=== PATIENT | female | born 1935 | race Caucasian/White ===

== ENCOUNTER 2021-10-27 21:54 | Observation (INO) | payer MEDICARE, MEDICAID ==
[2021-10-27 22:31] LABS: #Basophils 0.1 10x3/uL (0.0-0.2); #Eosinphils 0.3 10x3/uL (0.0-0.5); #Monocytes 0.9 10x3/uL (0.0-1.1); #Neutrophils 10.9 10x3/uL (1.5-8.4); %Basophils 0.6 % (0.0-2.0); %Eosinophils 2.4 % (0.0-6.0); %Lymphocytes 3.9 % (18.0-47.0); %Monocytes 6.8 % (0.0-10.0); %Neutrophils 85.8 % (40.0-75.0); Hemoglobin 11.1 g/dL (12.0-15.5); Mean Corpuscular HGB CONC 31.4 g/dL (32.0-36.0); Mean Corpuscular Hemoglobin 29.5 pg (27.0-33.0); Mean Corpuscular Volume 93.9 fl (81.6-98.3); Mean Platelet Volume 9.4 fl (7.4-10.4); Platelet Count 197 10x3/uL (150-450); Red Blood Cell (RBC) Count 3.76 10x6/uL (3.90-5.03); White Blood Cell (WBC) Count 12.7 10x3/uL (3.5-10.5)
[2021-10-27 22:45] LABS: ALT (SGPT) 25 U/L (8-55); AST (SGOT) 23 U/L (5-34); Albumin 3.7 g/dL (3.4-4.8); Alkaline Phosphatase 60 U/L (40-110); Anion Gap 12 mmol/L (10-20); BUN (Urea Nitrogen) 13 mg/dL (9.8-20.1); Bilirubin, Total 0.3 mg/dL (0.2-1.2); Calc. Creatinine Clearance 0 mL/min (70-130); Calcium 8.7 mg/dL (7.8-10.44); Carbon Dioxide 26 mmol/L (23-31); Chloride 103 mmol/L (98-107); Globulin 2.4 g/dL (2.4-3.5); Glucose 110 mg/dL (83-110); Potassium 4.2 mmol/L (3.5-5.1); Protein, Total 6.1 g/dL (5.8-8.1); Sodium 137 mmol/L (136-145)
[2021-10-27] MEDS ORDERED: methylPREDNISolone Sod Succ/PF 125 MG/2 ML VIAL ONE (22:46)
[2021-10-28 01:20] LABS: SARS-CoV-2 NAA Rapid Test Not Detected (NotDetected)
[2021-10-28] MEDS ORDERED: Ondansetron PF 4 MG/2 ML Vial IVP PRN (02:48)
[2021-10-28] MEDS ORDERED: HYDROcodone/Acetaminophen 5/325 mg Tablet PO PRN (02:48)
[2021-10-28] MEDS ORDERED: Calcium Carbonate 500 MG ChewTAB PO PRN (02:48)
[2021-10-28] MEDS ORDERED: Senokot S 8.6-50 MG TAB PO PRN (02:48)
[2021-10-28] MEDS ORDERED: Acetaminophen 325 MG TAB PO PRN (02:48)
[2021-10-28] MEDS ORDERED: Guaifenesin DM 100-10/5 ML UDCUP PO PRN (02:48)
[2021-10-28 03:57] VITALS: BMI 17.4
[2021-10-28] MEDS ORDERED: Oseltamivir 75 MG CAP PO SCH (04:00)
[2021-10-28] MEDS: methylPREDNISolone Sod Succ 40 MG VIAL IVP SCH ×4 (06:10→23:52)
[2021-10-28] MEDS ORDERED: Ipratropium Bromide 2.5 ml Neb NEB SCH (07:00)
[2021-10-28] MEDS ORDERED: Non-Formulary Medication 1 EACH (Tiotropium [Spiriva Handihaler] 18 MCG Box) INH SCH (07:00)
[2021-10-28] MEDS: Mometasone/Formoterol 200/5 60 PUFF INH SCH ×2 (07:25→20:32)
[2021-10-28] MEDS ORDERED: Amoxicillin/Potassium Clav 875 MG TAB PO SCH (08:00)
[2021-10-28] MEDS: Fish Oil 1,000 MG CAP PO SCH (08:25)
[2021-10-28] MEDS: Famotidine 20 MG TAB PO SCH (08:26)
[2021-10-28] MEDS: guaiFENesin ER 600 MG TAB PO SCH ×2 (08:26→21:15)
[2021-10-28] MEDS: Enoxaparin Sodium 40 MG/0.4 ML SYRINGE SC SCH (08:26)
[2021-10-28] MEDS: Lisinopril 10 MG TAB PO SCH (08:26)
[2021-10-28] MEDS: Multivit, Therapeutic 1 TAB PO SCH (08:26)
[2021-10-28] MEDS ORDERED: Azithromycin 500 MG in Sodium Chloride 0.9% 250 ML 250 ML IVPB SCH (14:00)
[2021-10-28] MEDS ORDERED: Naproxen 500 MG TAB PO SCH (14:00)
[2021-10-28] MEDS: Oseltamivir 75 MG CAP PO SCH (17:38)
[2021-10-28] MEDS: Naproxen 500 MG TAB PO SCH (21:15)
[2021-10-29] MEDS: Oseltamivir 75 MG CAP PO SCH (05:29)
[2021-10-29] MEDS: Mometasone/Formoterol 200/5 60 PUFF INH SCH (07:05)
[2021-10-29] MEDS ORDERED: predniSONE 20 MG TAB PO SCH (08:00)
[2021-10-29] MEDS: guaiFENesin ER 600 MG TAB PO SCH (08:55)
[2021-10-29] MEDS: Multivit, Therapeutic 1 TAB PO SCH (08:56)
[2021-10-29] MEDS: Lisinopril 10 MG TAB PO SCH (08:56)
[2021-10-29] MEDS: Fish Oil 1,000 MG CAP PO SCH (08:56)
[2021-10-29] MEDS: Famotidine 20 MG TAB PO SCH (08:56)
[2021-10-29] MEDS: Naproxen 500 MG TAB PO SCH (08:57)
[2021-10-29] MEDS: Enoxaparin Sodium 40 MG/0.4 ML SYRINGE SC SCH (08:59)
[2021-10-29 12:14] VITALS: BP 129/73; TEMP 97.4
== END 2021-10-29 12:15 | disposition home or self-care (01) ==
LOC: CSHERS 21:54 → CSHTELE 10-28 03:32
PROVIDERS: ADMIT Student in an Organized Health Care Education/Training Program; ATTEND Family Medicine
DX: J44.1 Chronic obstructive pulmonary disease with (acute) exacerbation (principal); J10.1 Influenza due to other identified influenza virus with other respiratory manifestations; J96.21 Acute and chronic respiratory failure with hypoxia; R00.0 Tachycardia, unspecified; Z99.81 Dependence on supplemental oxygen; I12.9 Hypertensive chronic kidney disease with stage 1 through stage 4 chronic kidney disease, or unspecified chronic kidney disease; N18.2 Chronic kidney disease, stage 2 (mild); I27.20 Pulmonary hypertension, unspecified; Z87.891 Personal history of nicotine dependence; Z66 Do not resuscitate; Z20.822 Contact with and (suspected) exposure to COVID-19; Z79.51 Long term (current) use of inhaled steroids; Z79.899 Other long term (current) drug therapy
CPT/HCPCS: 0240U; 71045; 71275; 80053; 83605; 83735; 84443; 84484; 85025; 93005; 94640 ×6; 94664; 94760 ×3; 96372; 96375; 96376; 97116 ×2; 97139 ×3; 97530; G0378 ×3; 96374; J0456; J1650; J2405; J2920; J2930; J7050; J7512; J7620